=== PATIENT | male | born 1945 | race Caucasian/White ===

== ENCOUNTER 2019-11-06 10:54 | Day surgery (SDC) | payer MEDICARE ==
[~2019-11-06] VITALS: Ht 170.2 cm; Wt 126.5 kg
[2019-11-06] VITALS (12 sets, daily range): BP systolic 107–181; BP diastolic 61–94
[2019-11-06] MEDS ORDERED: dextrose ORAL solution 15 GM/59 ML bottle PO PRN ×2 (11:05)
[2019-11-06] MEDS ORDERED: MESSAGE TO PHARMACY PO ONE (11:05)
[2019-11-06] MEDS ORDERED: dextrose 50%-water 50ml dispensing syringe IV PRN ×2 (11:05)
[2019-11-06] MEDS ORDERED: insulin Lispro (HumaLOG) vial - multi-dose SQ SCH (11:05)
[2019-11-06] MEDS ORDERED: glucagon, human recombinant 1mg kit SUBCUT PRN (11:05)
[2019-11-06] MEDS ORDERED: normal saline 1,000 ML IV SCH (11:10)
[2019-11-06] MEDS ORDERED: nitroGLYCERIN 0.4mg SUBLingual tab SL PRN (11:10)
[2019-11-06] MEDS ORDERED: LORazepam 0.5 MG tablet PO PRN (11:10)
[2019-11-06] MEDS ORDERED: diphenhydrAMINE 25mg capsule PO PRN (11:10)
[2019-11-06] MEDS ORDERED: ASPI-1265 PO (12:07)
[2019-11-06] MEDS ORDERED: METF500T PO (12:07)
[2019-11-06] MEDS ORDERED: PARO30TA4 PO (12:07)
[2019-11-06] MEDS ORDERED: IBUP-24 PO (12:07)
[2019-11-06] MEDS ORDERED: ROSU20TA31 PO (12:07)
[2019-11-06] MEDS ORDERED: HYDR25TA4 PO (12:07)
[2019-11-06] MEDS ORDERED: OLME20TA23 PO (12:07)
[2019-11-06 12:08] LABS: BASOPHILS % (AUTO) 0.4 % (0-1); EOSINOPHILS # (AUTO) 0.1 X10'3 (0-0.9); HEMOGLOBIN 13.3 g/dl (14.0-17.9); LYMPHOCYTES # (AUTO) 2.8 X10'3 (1.1-4.8); LYMPHOCYTES % (AUTO) 37.5 % (21-51); MEAN PLATELET VOLUME 8.7 FL (7.4-10.4); MONOCYTES # (AUTO) 0.7 X10'3 (0-0.9)
[2019-11-06 12:10] LABS: EOSINOPHILS % (AUTO) 0.8 % (0-6); HEMATOCRIT 38.9 % (42.0-52.0); MEAN CORPUSCULAR HEMOGLOBIN 30.7 PG (27.0-31.0); MEAN CORPUSCULAR HGB CONC 34.2 g/dL (33.0-36.5); MEAN CORPUSCULAR VOLUME 89.8 FL (78-98); MONOCYTES % (AUTO) 9.4 % (2-12); NEUTROPHILS # (AUTO) 3.9 X10'3 (1.8-7.7); NEUTROPHILS % (AUTO) 51.9 % (42-75); PLATELET COUNT 217 X10'3 (140-440); RED BLOOD COUNT 4.33 X10'6 (4.70-6.10); RED CELL DISTRIBUTION WIDTH 14.2 % (11.5-14.5); WHITE BLOOD COUNT 7.5 X10'3 (4.5-11.0)
[2019-11-06] MEDS ORDERED: LIDOcaine/PRILOcaine 5gm cream TP ONE (12:10)
[2019-11-06 12:26] LABS: ANION GAP 7 (8-16); BLOOD UREA NITROGEN 13 MG/DL (7-18); BUN/CREATININE RATIO 11.5 (5.4-32.0); CALCIUM 8.7 MG/DL (8.5-10.1); CHLORIDE 104 MMOL/L (99-107); CREATININE 1.13 MG/DL (0.60-1.10); GLUCOSE 126 MG/DL (70-104); SODIUM 141 MMOL/L (135-145); TOTAL CARBON DIOXIDE 29.6 MMOL/L (24-32); eGFR 64 ML/MIN
[2019-11-06 13:03] LABS: LARGE PLATELETS FEW; PLATELET ESTIMATE NORMAL
[2019-11-06] MEDS ORDERED: midazolam 2 mg/2 ml injection ONE (14:39)
[2019-11-06] MEDS ORDERED: iohexol 350 MG/ML 50ML vial IV ONE ×2 (14:39→15:20)
[2019-11-06] MEDS ORDERED: iohexol 350MG/ML 100ml bottle IV ONE (14:39)
[2019-11-06] MEDS ORDERED: fentaNYL/PF 50MCG/1 ML 2ML syringe ONE (14:39)
[2019-11-06] MEDS ORDERED: LIDOcaine 1% (10mg/ml)w/preservative injection 20ml MDV ONE (14:39)
[2019-11-06] MEDS ORDERED: proCHLORperazine 10 MG/2 ml inj IV PRN (17:00)
[2019-11-06] MEDS ORDERED: HYDROcodone/acetaminophen 10/325mg tab PO PRN (17:00)
[2019-11-06] MEDS ORDERED: HYDROcodone/acetaminophen 5mg/325mg tablet PO PRN (17:00)
[2019-11-06] MEDS ORDERED: ondansetron/PF 4mg/2ml inj IV PRN (17:00)
[2019-11-06] MEDS ORDERED: OXAZEpam 15mg capsule PO PRN (17:00)
[2019-11-06] MEDS ORDERED: acetaminophen 325mg tablet PO PRN (17:00)
[2019-11-06 19:08] LABS: HEMOGLOBIN A1C 6.8 % (4.5-6.2)
[2019-11-06] MEDS ORDERED: insulin glargine (Lantus) pen - multi-dose SQ SCH (21:00)
== END 2019-11-06 20:00 | disposition home or self-care (01) ==
LOC: SSTAY O 10:54
PROVIDERS: ATTEND Internal Medicine Cardiovascular Disease
DX: R94.39 Abnormal result of other cardiovascular function study (principal); I25.10 Atherosclerotic heart disease of native coronary artery without angina pectoris; M19.90 Unspecified osteoarthritis, unspecified site; G47.33 Obstructive sleep apnea (adult) (pediatric); E11.9 Type 2 diabetes mellitus without complications; I10 Essential (primary) hypertension; E78.5 Hyperlipidemia, unspecified; J44.9 Chronic obstructive pulmonary disease, unspecified; Z85.038 Personal history of other malignant neoplasm of large intestine; Z98.890 Other specified postprocedural states; R06.09 Other forms of dyspnea
CPT/HCPCS: 36415; 71046; 75625; 80048; 83036; 83880; 85025; 85610; 93458; 99152; 99153; C1769; J1644; J1815; J2001; J2250; J3010; J7030; Q0163; Q9967; A4620; A6258; C1760